=== PATIENT | female | born 1985 | race Caucasian/White ===

== ENCOUNTER 2017-01-05 16:32 | Emergency (ER) | payer BC ==
[~2017-01-05] VITALS: Ht 165.1 cm; Wt 113.4 kg
--- NOTE | ~2017-01-05 | CT2 ---
[facility] A Service of [facility] RADIOLOGY TEXT RESULTS PATIENT: CINTHYA CHASE LOCATION: [facility] : [birth year] UNIT #: [id number] AGE: [address]: Mir Russo DO SEX: F ORDER DR: [id number] [facility] [address] [place], [place] [address] [id number] E MR#: [id number] Acc #: [id number] NAME: CINTHYA CHASE : 1985 SEX: F STUDY DATE/TIME: 01/05/2017 20:31 UNIT: [facility] ROOM: STUDY DESCRIPTION: CT Abd and Pelv W Cont Attending Physician: Mir Russo D.O. Ordering Physician: Mir Russo D.O. Primary Care Physician: Nessa Calhoun M.D. MEDICAL IMAGING REPORT This report is preliminary unless electronic signature is present EXAM CT abdomen and pelvis with IV contrast. COMPARISON September 14, 2009. INDICATIONS 31-year-old female with left side abdominal pain and nausea for [address] imaging of the abdomen and pelvis was performed after IV administration of 100 mL Isovue-370. Coronal and sagittal reformats were constructed. This CT exam was performed with one or more of the following radiation dose reduction techniques: Automatic exposure control, adjustment of mA and/or kV according to patient size, and iterative reconstruction. FINDINGS Degenerative sclerosis at both sacroiliac joints. Mild degenerative facet disease of the lower lumbar spine. Multilevel degenerative endplate change of the jor-ee-isyaj thoracic spine. No acute fractures or suspicious osseous lesions. Small posterior disc protrusions L4-L5 and L5-S1. Mild cardiomegaly. No acute findings in imaged lower chest. Hepatomegaly. Liver is otherwise unremarkable. The gallbladder, pancreas, spleen, adrenal glands are unremarkable. Heterogeneous mass-like density in the superior pole of the right kidney measures approximately 3.4 cm x 2.5 cm x approximately 3.4 cm. Is not definitely appreciated on comparison to noncontrast CT of 2009. There is a simple cyst in the left kidney measuring up to 1 cm. No hydronephrosis or hydroureter. No renal or ureteral calculi. Urinary bladder and uterus are unremarkable. No adnexal masses. No evidence of bowel obstruction. The appendix is normal. Abdominal aorta is normal course and caliber, with patency its main branches. No free fluid or pneumoperitoneum. No STS. [facility] A Service of [facility] RADIOLOGY TEXT RESULTS PATIENT: CINTHYA CHASE LOCATION: [facility] : 87 UNIT #: [id number] AGE: [address]: Mir Russo DO SEX: F ORDER DR: evidence of adenopathy. No evidence of bowel obstruction. IMPRESSION 1. Mass-like density which has apparent heterogeneous enhancement in the superior pole of the right kidney measuring 3.4 cm x 2.5 cm x 3.4 cm. This must be viewed as a renal cell carcinoma until proven otherwise. Outpatient CT with and without IV contrast or alternately MRI with and without IV contrast is recommended for further characterization. Consideration of outpatient urology consultation is also recommended. 2. Hepatomegaly without evidence of cirrhosis. 3. Small posterior disc protrusions L4-L5 and L5-S1. 4. Mild cardiomegaly. 5. Simple cyst in the left kidney. Dictated by... Franklin Umaña M.D. THIS IS AN ELECTRONICALLY VERIFIED REPORT Franklin Umaña M.D. at 01/07/2017 3:41 PM MIRTA/sabina TD: 01/06/2017 13:52 JOB #: [id number] MEDICAL IMAGING REPORT Page 1 of 1 COPY
[~2017-01-05 16:32] MED LIST: LORTAB 7.5-5001 TAB PO; PHENERGAN PO
[2017-01-05 17:10] LABS: BASOPHIL# 0.1 X10e3 (0-0.3); BASOPHIL% 0.8 % (0-2.5); EOSINOPHIL# 0.3 X10e3 (0-0.7); HEMOGLOBIN 13.7 gm/dL (12.0-16.0); LYMPHOCYTE# 3.2 X10e3 (1.0-3.5); LYMPHOCYTE% 30.2 % (17.0-45.0); MEAN CELL VOLUME 81.3 FL (83-96); MEAN CORPUSCULAR HEMOGLOBIN 27.7 PG (28-34); MEAN CORPUSCULAR HGB CONC 34.1 g/dL (30-36); MEAN PLATELET VOLUME 7.6 FL (6.5-11.5); MONOCYTE# 0.5 X10e3 (0-1.0); MONOCYTE% 4.7 % (3.0-12.0); NEUTROPHIL# 6.5 X10e3 (1.5-7.1); NEUTROPHIL% 61.3 % (40-75); PLATELET COUNT 272 X10e3 (140-420); RED BLOOD COUNT 4.93 X10e (3.90-5.30); RED CELL DISTRIBUTION WIDTH 13.7 % (11.0-15.5); WHITE BLOOD COUNT 10.6 X10e3 (4.0-10.5)
[2017-01-05 17:11] LABS: DIFF IND NO
[2017-01-05 17:38] LABS: ALBUMIN SERUM 4.1 g/dL (3.5-5.0); BILIRUBIN, DIRECT 0.1 mg/dL (0.0-0.2); BILIRUBIN,INDIRECT 0.6 mg/dL (0.0-0.9); BILIRUBIN,TOTAL 0.7 mg/dL (0.2-2.0); CALCIUM SERUM 8.7 mg/dL (8.4-10.2); CREATININE SERUM 0.6 mg/dL (0.6-1.4); GLOM FILT RATE Estimated 122.3 mL/min (>60); POTASSIUM 3.2 mmol/L (3.5-5.1); PROTEIN TOTAL SERUM 7.5 g/dL (6.0-8.3)
[2017-01-05 20:08] LABS: URINE SOURCE CLEAN CATCH
[2017-01-05 20:15] LABS: URINE APPEARANCE CLEAR; URINE BILIRUBIN NEG (NEG); URINE BLOOD NEG (NEG); URINE COLOR YELLOW; URINE GLUCOSE NEG (NEG); URINE KETONE NEG (NEG); URINE LEUKOCYTE ESTERASE TRACE (NEG); URINE NITRATE NEG (NEG); URINE PH 6.5 (5-8); URINE PROTEIN NEG (NEG); URINE SPECIFIC GRAVITY 1.017 (1.003-1.035); URINE UROBILINOGEN 0.2 MG/DL (NEG)
[2017-01-05 20:19] LABS: CULTURE INDICATED? NO; URINE BACTERIA AUWI NEG (NEGATIVE); URINE SQUAMOUS EPITHELIAL CELL OCC /[HPF]
== END 2017-01-06 01:05 | disposition home or self-care (01) ==
LOC: CED 16:32
PROVIDERS: Emergency Medicine
DX: N28.89 Other specified disorders of kidney and ureter (principal); R03.0 Elevated blood-pressure reading, without diagnosis of hypertension; Z79.899 Other long term (current) drug therapy
CPT/HCPCS: 36415; 74177; 80048; 80076; 81003; 82150; 83690; 84703; 85025; 85379; 96374; 96375; 99284; J2270; J2405; Q9967